=== PATIENT | female | born 1965 | race Caucasian/White ===

== ENCOUNTER → 2022-08-31 10:52 | Outpatient (BNVA) | payer OTHER, SELFPAY | PROVIDERS: Family Provider Family Medicine; PCP Family Medicine; Visit Provider Obstetrics & Gynecology | DX: Z01.419 Encounter for gynecological examination (general) (routine) without abnormal findings (principal) | CPT/HCPCS: 87624 ==

== ENCOUNTER 2024-03-11 06:00 | Outpatient (RCR) | payer MEDICARE, SELFPAY | END 2024-03-17 23:59 | disposition home or self-care (01) | LOC: GPT 06:00 | PROVIDERS: PCP Family Medicine; Visit Provider Orthopaedic Surgery | DX: Z47.1 Aftercare following joint replacement surgery (principal); Z96.651 Presence of right artificial knee joint | CPT/HCPCS: 97110; 97112; 97140; 97162; 97530 ==

== ENCOUNTER 2024-03-18 06:00 | Outpatient (RCR) | payer MEDICARE, SELFPAY | END 2024-04-17 23:59 | disposition home or self-care (01) | LOC: GPT 06:00 | PROVIDERS: PCP Family Medicine; Visit Provider Orthopaedic Surgery | DX: Z47.1 Aftercare following joint replacement surgery (principal); Z96.651 Presence of right artificial knee joint | CPT/HCPCS: 97110; 97112; 97140; 97530 ==

== ENCOUNTER 2024-04-18 06:00 | Outpatient (RCR) | payer MEDICARE, SELFPAY | END 2024-05-18 23:59 | disposition home or self-care (01) | LOC: GPT 06:00 | PROVIDERS: PCP Family Medicine; Visit Provider Orthopaedic Surgery | DX: Z47.1 Aftercare following joint replacement surgery (principal); Z96.651 Presence of right artificial knee joint | CPT/HCPCS: 97110; 97112; 97140; 97164; 97535 ==

== ENCOUNTER 2024-05-19 06:30 | Outpatient (RCR) | payer MEDICARE, SELFPAY | END 2024-06-03 23:59 | disposition home or self-care (01) | LOC: GPT 06:30 | PROVIDERS: PCP Family Medicine; Visit Provider Orthopaedic Surgery | DX: Z47.1 Aftercare following joint replacement surgery (principal); Z96.651 Presence of right artificial knee joint | CPT/HCPCS: 97110; 97140 ==

== ENCOUNTER 2024-07-03 08:57 | Outpatient (CLI) | payer MEDICARE, SELFPAY ==
--- NOTE | 2024-07-03 09:00 | MM_ITS ---
WS: [id number] Bilateral screening 3D tomosynthesis digital mammogram, 07/03/2024 9:05 AM Clinical Data: SCREENING Comparison: 03/27/2018 Findings: No spiculated masses or clustered calcifications are seen. There are no secondary signs of carcinoma . MM/MM scr BI tomosynthesis [id number] Impression: Negative bilateral mammogram unchanged. Recommend annual screening mammograms. BIRADS: 1 - Negative. FOLLOW UP: 1 Year Follow-up DENSITY: The breasts are almost entirely fatty. The CAD specifications checker was used
== END 2024-07-03 08:58 | disposition home or self-care (01) ==
LOC: MOBLMAM 09:00
PROVIDERS: PCP Family Medicine; Visit Provider Family Medicine
DX: Z12.31 Encounter for screening mammogram for malignant neoplasm of breast (principal)
CPT/HCPCS: 77063; 77067

== ENCOUNTER 2025-05-01 10:23 | Outpatient (CLI) | payer MEDICARE, SELFPAY ==
--- NOTE | 2025-05-01 10:32 | XR_ITS ---
WS: [id number] Thoracic spine, 3 views, 05/01/2025 Clinical Data: M54.6 - Pain in thoracic spine Comparison: None. Findings: No compression fractures are seen. The disc heights are normal. Minimal osteoarthritis is present. The paravertebral regions are normal. There is a minimal dextroscoliosis. There are clips in the right upper quadrant from a cholecystectomy. XR/XR thoracic spine 3V* [id number] Impression: Minimal osteoarthritis and dextroscoliosis.
--- NOTE | 2025-05-01 10:32 | XR_ITS ---
WS: [email or web address] Lumbar spine, 3 views, 05/01/2025 Clinical Data: M54.50 - Low back pain, unspecified Comparison: None. Findings: No compression fractures are seen. There is posterior lumbosacral fusion at L5- S1 with bilateral pedicle screws and connecting rods. There is degenerative disc narrowing at L4-L5 and an artificial disc at L5-S1. There is 1.6 cm anterior subluxation of L5 on S1. There are laminectomies at L4 and L5. There is a minimal dextroscoliosis. The transverse processes and SI joints are normal. There are cholecystectomy clips in the right upper quadrant. XR/XR lumbar spine 2-3V* [id number] Impression: 1. Posterior lumbar fusion L5-S1 with 1.6 cm anterior subluxation of L5 on S1. 2. Degenerative disc narrowing at L4-L5 with laminectomies at L4 and L5. 3. Minimal dextroscoliosis.
== END 2025-05-01 10:24 | disposition home or self-care (01) ==
PROVIDERS: PCP Family Medicine; Visit Provider Nurse Practitioner Family
DX: M43.27 Fusion of spine, lumbosacral region (principal); S33.140A Subluxation of L4/L5 lumbar vertebra, initial encounter; X58.XXXA Exposure to other specified factors, initial encounter; Z96.89 Presence of other specified functional implants; Z98.890 Other specified postprocedural states; Z97.8 Presence of other specified devices; Z90.49 Acquired absence of other specified parts of digestive tract
CPT/HCPCS: 72072; 72100

== ENCOUNTER 2025-07-15 10:28 | Outpatient (CLI) | payer MEDICARE, SELFPAY ==
--- NOTE | 2025-07-15 10:43 | XRR_ITS ---
PROCEDURE INFORMATION: Exam: XR Left Foot Exam date and time: 07/15/2025 10:59 AM Age: 60 years old Clinical indication: Pain; Foot; Bilateral; Additional info: Bilateral foot pain TECHNIQUE: Imaging protocol: Radiologic exam of the left foot. Views: 3 or more views. COMPARISON: No relevant prior studies available. FINDINGS: Bones/joints: No acute fracture. Mild joint-space narrowing of the interphalangeal joints and tarsometatarsal joints is noted. No acute fracture. Osseous alignment is normal. Calcaneal spurs are noted. Pes planus is noted. Soft tissues: Soft tissue edema of the dorsal foot is noted. XR/XR foot LT min 3V* [id number] IMPRESSION: 1. No acute osseous abnormality. Mild degenerative changes of the phalanges and midfoot. 2. Soft tissue edema of the dorsal foot is noted.
--- NOTE | 2025-07-15 10:43 | XRR_ITS ---
PROCEDURE INFORMATION: Exam: XR Right Foot Exam date and time: 07/15/2025 10:59 AM Age: 60 years old Clinical indication: Pain; Foot; Bilateral; Additional info: Bilateral foot pain TECHNIQUE: Imaging protocol: Radiologic exam of the right foot. Views: 3 or more views. COMPARISON: No relevant prior studies available. FINDINGS: Bones/joints: No acute fracture. Mild interphalangeal joint space narrowing is noted. Mild joint space narrowing is noted at the tarsometatarsal joints. Calcaneal spurs are noted. Soft tissues: Soft tissue edema of the dorsal foot is noted. XR/XR foot RT min 3V* [id number] IMPRESSION: 1. No acute osseous abnormality. Mild degenerative changes of the phalanges in the midfoot. 2. Soft tissue edema of the dorsal foot is noted.
== END 2025-07-15 10:29 | disposition home or self-care (01) ==
PROVIDERS: PCP Family Medicine; Visit Provider Family Medicine
DX: M19.072 Primary osteoarthritis, left ankle and foot (principal); M19.071 Primary osteoarthritis, right ankle and foot; R60.0 Localized edema; M77.32 Calcaneal spur, left foot; M77.31 Calcaneal spur, right foot; R93.6 Abnormal findings on diagnostic imaging of limbs
CPT/HCPCS: 73630

== ENCOUNTER 2025-08-05 10:27 | Outpatient (CLI) | payer MEDICARE, SELFPAY ==
--- NOTE | 2025-08-05 10:20 | MM_ITS ---
WS: [id number] BILATERAL 3D TOMOSYNTHESIS DIGITAL SCREENING MAMMOGRAPHY WITH CAD CLINICAL INFORMATION: SCREENING HISTORY: Screening mammogram. No current complaints. COMPARISON: 2023 TECHNIQUE: Bilateral CC and MLO views. FINDINGS: Scattered fibroglandular densities bilaterally. No suspicious focal mass, asymmetry, calcifications, or architectural distortion. No evidence of malignancy. Incidental punctate and lucent centered calcifications. MM/MM scr tomosynthesis [id number] IMPRESSION: DENSITY: There are scattered areas of fibroglandular density. BI-RADS: 2 - Benign. FOLLOW UP: 1 Year Follow-up Recommend return to annual screening mammography.
== END 2025-08-05 10:28 | disposition home or self-care (01) ==
LOC: MOBLMAM 10:30
PROVIDERS: PCP Family Medicine; Visit Provider Family Medicine
DX: Z12.31 Encounter for screening mammogram for malignant neoplasm of breast (principal); R92.323 Mammographic fibroglandular density, bilateral breasts; R92.1 Mammographic calcification found on diagnostic imaging of breast
CPT/HCPCS: 77063; 77067